=== PATIENT | female | born 1950 | race Caucasian/White ===

== ENCOUNTER 2018-04-17 06:38 | Inpatient (IN) ==
--- NOTE | 2018-04-16 22:23 | Discharge Summary ---
Orders not resulted at time of discharge: Pending orders 04/17/18 00:01 XR shoulder complete RT [XR] Routine H/H [Hemoglobin and Hematocrit] [HEME] Routine Date of Encounter: 04/18/18 Time of Encounter: 11:47 - Discharge Diagnosis (1) Status post reverse total arthroplasty of right shoulder Priority: Primary Status: Acute Comments: Opsite dressing, leave intact until first post-operative visit. Zipline in place, plan to remove at post-operative day #14-16. If dressing becomes >50% saturated, contact office, remove dressing and place appropriate dressing in its place. Do not allow for dressing to get wet. Shoulder Precautions x 6 weeks. Apply cold therapy wrap 3-6x/day for 20 minutes at a time. Encourage ambulation throughout the day. Use Incentive spirometer 10x/hour. Elevate affected extremity above heart as tolerated. NWB to affected upper extremity x 6 weeks. Will remove brace at first post-operative appointment. OK to remove during PT/OT and Home exercises. Remove ABD pillow at Postoperative day #1 (2) Rotator cuff arthropathy of right shoulder Priority: Primary Status: Acute (3) Factor V Leiden Priority: Secondary Status: Chronic (4) HTN (hypertension) Priority: Secondary Status: Chronic Qualifiers: Hypertension type: essential hypertension Qualified Code(s): I10 - Essential (primary) hypertension (5) History of pulmonary embolism Priority: Secondary Status: Chronic (6) Gout Priority: Secondary Status: Chronic Qualifiers: Gout site: unspecified site Gout etiology: unspecified cause Chronicity: chronic Presence of tophus: without tophus Qualified Code(s): M1A.9XX0 - Chronic gout, unspecified, without tophus (tophi) (7) Obesity Priority: Secondary Status: Chronic Qualifiers: Obesity type: due to excess calories Obesity classification: adult class 3 (BMI >= 40) Serious obesity comorbidity presence: without serious comorbidity Body mass index: BMI 45.0-49.9 Qualified Code(s): E66.01 - Morbid (severe) obesity due to excess calories; Z68.42 - Body mass index (BMI) 45.0-49.9, adult (8) Chronic anticoagulation Priority: Secondary Status: Chronic - Hospital Course Hospital course: Ms. Crowell is a 67 year old female POD#1 - Right TSR-r 04/17/18 Patient seen at bedside, without complaints. A&O x 3 Pain control added: Lidoderm patch Afebrile, vital signs stable. Vital Signs Temp Pulse Resp BP Pulse Ox 04/18/18 08:22 98.8 F 78 14 106/68 93 04/18/18 03:56 98.8 F 88 17 102/68 93 04/17/18 23:24 98.8 F 105 17 110/73 96 04/17/18 18:29 98.4 F 102 17 132/81 95 04/17/18 16:08 97.8 F 95 15 123/75 94 04/17/18 13:00 98.1 F 92 15 110/71 96 Intake and Output 04/17/18 04/18/18 04/18/18 23:59 07:59 15:59 Intake Total 1600 / 1600 240 / 240 Output Total 200 / 200 Balance 1400 / 1400 240 / 240 Intake: IV Fluids 1100 / 1100 Lactated Ringers 1,000 ML @ 75 1000 / 1000 mls/hr IVC .[id number] [facility] Rx#: [id number] Ancef 2,000 MG In 0.9 % Sodium 100 / 100 Chloride 100 ML @ 200 mls/hr IVPB Q8HR [facility] Rx#:[id number] Oral 500 / 500 240 / 240 Output: Urine 200 / 200 Other: Meal Breakfast Percent of Meal Consumed 100% # Voids 1 1 Weight 116.6 kg Patient Weight 04/18/18 23:59 Weight 116.6 kg Labs reviewed. H/H - stable, asymptomatic PT/INR - 1.1 - Start Lovenox 120 dose once a day - follow up [facility] this week. Pain control: adequate Participating in PT. All questions and concerns addressed. Educated on use of incentive spirometer. Encouraged ambulation and proper hydration. Patient educated on post-operative restrictions and post-operative care. Assessment and plan: Continue with postoperative care Discharge plan: Home with OP, discharge today. Coumadin Clinic F/up this week. PT/INR repeat on - Time Spent with Patient Total time spent providing and/or coordinating discharge services: - Discharge Medications Home Medications: Allopurinol [Zyloprim] 300 mg PO DAILY 03/23/16 [History] Biotin 1,000 mcg PO DAILY 03/23/16 [History] Bupropion HCl [Wellbutrin Xl] 300 mg PO DAILY 03/23/16 [History] Cinnamon Bark [Cinnamon] 1,000 mg PO DAILY 03/23/16 [History] Citalopram Hydrobromide [Citalopram HBr] 10 mg PO DAILY 03/23/16 [History] Loratadine [Allergy Relief] 10 mg PO DAILY 03/23/16 [History] [place]-3/Dha/Epa/Fish Oil [Fish Oil 1,000 mg Softgel] 1 cap PO DAILY 03/23/16 [History] Triamterene/Hydrochlorothiazid [Triamterene-Hctz 75-50 mg Tab] 1 each PO DAILY 03/23/16 [History] Warfarin [Coumadin] 10 mg PO SUTUWETHSA 03/23/16 [History] ALPRAZolam [Xanax 0.25 MG Tablet] 0.25 mg PO DAILY PRN 04/17/18 [History] Calcium Carbonate/Vitamin D3 [Calcium 500 + Vit D Caplet] 1 tab PO DAILY 04/17/18 [History] Cyclobenzaprine HCl 5 mg PO Q8H PRN 04/17/18 [History] Enoxaparin [Lovenox] 30 mg SQ Q12HR 5 Days #10 syringe 04/17/18 [Rx] Montelukast [Singulair] 10 mg PO HS 04/17/18 [History] Omeprazole [PriLOSEC] 20 mg PO DAILY 04/17/18 [History] Potassium Chloride 20 meq PO DAILY 04/17/18 [History] Turmeric Root Extract [Turmeric] 500 mg PO DAILY 04/17/18 [History] Warfarin Sodium 7.5 mg PO MOFR 04/17/18 [History] Docusate [Colace] 100 mg PO BID capsule 04/18/18 [Rx] Lidocaine Patch [Lidoderm 5% patch] 1 each TP DAILY adh..patch 04/18/18 [Rx] Allergies/Adverse Reactions: Allergy/AdvReac Type Severity Reaction Status Date / Time gabapentin AdvReac Dizziness Verified 04/17/18 11:45 [id number]-Aqd-Mmz Reductase AdvReac Muscle Pain Verified 04/17/18 11:45 Inhibitor [Statins] Date of admission: 04/17/18 Anticipated date of discharge: 04/18/18 - Patient Status Disposition: Home, Self-Care Condition: Good Functional capacity at discharge: independent ambulation Overall status at discharge: patient is progressing back to baseline - Discharge Instructions Follow Up With: Tasha Presley PAC [Physician Water Safety Teacher] - 04/27/18 9:30 am Saran Lanier MD [Partnered Physician] - 05/17/18 4:15 pm Rajan,Myriam Diaz CNP [Primary Care Provider] - 05/15/18 10:15 am
--- NOTE | 2018-04-17 06:54 | Anesthesia Evaluation PreOp ---
Date of Encounter: 04/17/18 Time of Encounter: 06:51 - Past History Planned Operation: Right total shoulder Cardiac History: HTN, Hyperlipidemia, Other (Factor V leiden w/ Hx PE/DVT. Last 2008. Has held coumadin 5 days with lovenox bridge.) INDUSTRIAL MACHINERY MECHANIC History: Other (depression, Hx [place] Palsy) Other Medical History: GERD (dysphagia), Other (BMI 44) Anesthesia History: Past Anesthesia (Partial Hyster, [place], R-knee scope, [place] filter, Colonoscopy) : No Alcohol Use: none Drug use: none Medications and Allergies ALPRAZolam [Xanax 0.25 MG Tablet] 0.25 mg PO DAILY PRN 03/23/16 [History] Allopurinol [Zyloprim] 300 mg PO DAILY 03/23/16 [History] Biotin 1,000 mcg PO DAILY 03/23/16 [History] Bupropion HCl [Wellbutrin Xl] 300 mg PO DAILY 03/23/16 [History] Calcium Carbonate/Vitamin D3 [Calcium 500-Vit D3 200 Tablet] 1 each PO DAILY 03/23/16 [History] Cholestyramine 4 gm PO BID 03/23/16 [History] Ciclopirox 1 appl TP 3XW 03/23/16 [History] Cinnamon Bark [Cinnamon] 1,000 mg PO DAILY 03/23/16 [History] Citalopram Hydrobromide [Citalopram HBr] 10 mg PO DAILY 03/23/16 [History] Loratadine [Allergy Relief] 10 mg PO DAILY 03/23/16 [History] [place]-3/Dha/Epa/Fish Oil [Fish Oil 1,000 mg Softgel] 1 each PO DAILY 03/23/16 [History] Potassium Chloride [K-Tab ER] 20 meq PO DAILY 03/23/16 [History] Pregabalin [Lyrica] 50 mg PO BID 03/23/16 [History] Salicylic Acid/Ceramide Cmb #1 [Salex 6% Cream Kit] 1 appl TP DAILY 03/23/16 [History] Triamterene/Hydrochlorothiazid [Triamterene-Hctz 75-50 mg Tab] 1 each PO DAILY 03/23/16 [History] Warfarin [Coumadin] 10 mg PO [id number] 03/23/16 [History] Warfarin [Coumadin] 12.5 mg PO SUTH 03/23/16 [History] Docusate [Colace] 100 mg PO BID 10 Days #20 capsule 04/16/18 [Rx] OxyCODONE Immed Rel [Roxicodone 5 MG] 5 mg PO Q6HR PRN 7 Days #28 tablet 04/16/18 [Rx] Allergy/AdvReac Type Severity Reaction Status Date / Time gabapentin AdvReac Dizziness Verified 03/28/18 09:19 Uutwdbn-Yyx-Kps Reductase AdvReac Muscle Pain Verified 03/28/18 09:19 Inhibitor [Statins] - Meds/Allergy Pre-op Review Medications Reviewed: Yes Allergies Reviewed: Yes Beta Blockers on Current Med List: No Anesthesia Results - Labs Laboratory Tests 03/28/18 03/28/18 03/28/18 09:52 09:52 09:52 WBC 6.0 Hgb 13.5 Hct 41.2 Plt Count 219 PT 21.0 H INR 1.9 APTT 38.9 H Sodium 138 Potassium 3.9 Chloride 102 Carbon Dioxide 30 H BUN 28 H Creatinine 0.94 Est GFR (Non-Af Amer) 60 - Imaging EKG: report reviewed Additional studies: Stress test 02/2016 no ischemia Echo 02/2016 Impressions: Normal LV chamber size, wall thickness, and systolic function. LVEF 60%. Mild left ventricular diastolic dysfunction. Normal right ventricular structure and function. No significant valvular dysfunction. Unable to estimate RVSP due to lack of TR jet. Anesthesia Exam Vital Signs/O2 Sat/Glucose, Most Recent Temp Pulse Resp BP Pulse Ox 98.2 F 86 18 127/70 96 04/17/18 07:02 04/17/18 07:02 04/17/18 07:02 04/17/18 07:02 04/17/18 07:02 Weight: 116 kg NPO (# of Hours): > 8 hr - HEENT Pupil (Motor): Pupils equal Mallampati: II Teeth: Normal Oral Opening: Greater than 3 - INDUSTRIAL MACHINERY MECHANIC LOC: Oriented INDUSTRIAL MACHINERY MECHANIC Motor: Normal RUE, Normal LUE, Normal RLE, Normal LLE, Normal Face INDUSTRIAL MACHINERY MECHANIC Sensory: Normal: RUE, LUE, RLE, LLE, Face - Cardiac Rhythm: Regular Murmur: None - Pulmonary Breath Sounds: bilateral Clear Respiratory Effort: Symmetrical Anesthesia Assess/Plan ASA Score: 3 Level of consciousness: Cooperative, Oriented, Tranquil Anesthetic Plan: General, Regional Nerve Block Regional Nerve Block Plan: Supraclavicular, Supracervical Plexus, Intercostobracial Monitoring Plan: Standard Monitors Recovery Plan: PACU
[2018-04-17] MEDS ORDERED: *HR* Promethazine 25 MG/ML VIAL IVP PRN (06:57)
[2018-04-17] MEDS ORDERED: Ondansetron 4 MG/2 ML VIAL IVP ONE (06:57)
[2018-04-17] MEDS ORDERED: *HR* OxyCODONE Immed Rel 5 MG TABLET PO PRN ×2 (06:57→10:09)
[2018-04-17] MEDS ORDERED: *HR* HYDROmorphone (PF) 1 MG/ML SYRINGE IVP PRN (06:57)
[2018-04-17] MEDS ORDERED: Famotidine 20 MG/2 ML VIAL IVP ONE (06:57)
[2018-04-17] MEDS ORDERED: Acetaminophen IV 1,000 MG/100 ML INFUS..BTL IVPB ONE (06:57)
--- NOTE | 2018-04-17 06:58 | History & Physical Report ---
Date of Encounter: 04/17/18 Time of Encounter: 06:57 24 Hour HP Update - Instructions Instructions: If the History and Physical is less than 30 days old and was completed prior to A.M. admission and or procedure and has NOT been updated on calendar day of procedure please complete this update prior to performing procedure. - Update Patient reports changes in Medical Condition: No Changes in examination, assessment, or condition: No Changes in Medication: No Preop tests/diagnostics Reviewed: Yes Surgery Remains Indicated: Yes Consent for Planned Operative Procedure(s) Verified: Yes - Pre-Operative Checklist Preoperative Checklist Indicated: No Prophylactic Antibiotic Ordered: Yes Is VTE Prophylaxis Indicated?: Yes
[2018-04-17] MEDS ORDERED: Ethanol\\Acetic Acid\\Na Ace\\Ben 1,000 ML IRRIG.SOLN IR ONE (07:05)
[2018-04-17] MEDS ORDERED: CeFAZolin Syr 2,000MG/20 ML 2,000 MG/20 ML SYRINGE IVPB ONE (07:11)
[2018-04-17] MEDS ORDERED: Dexamethasone 4 MG/ML VIAL ONE (07:14)
[2018-04-17] MEDS ORDERED: *HR* FentaNYL (PF) 100 MCG/2 ML VIAL ONE (07:14)
[2018-04-17] MEDS ORDERED: *HR* Midazolam HCl 2 MG/2 ML VIAL ONE (07:14)
[2018-04-17] MEDS ORDERED: *HR* Succinylcholine 200 MG/10 ML VIAL IVP ONE (07:14)
[2018-04-17] MEDS ORDERED: Ondansetron 4 MG/2 ML VIAL ONE (07:14)
[2018-04-17] MEDS ORDERED: Lidocaine -MPF 2% 2 ML VIAL ONE (07:14)
[2018-04-17] MEDS ORDERED: *HR* Propofol 200 MG/20 ML VIAL IVP ONE (07:14)
[2018-04-17] MEDS ORDERED: Ringers Solution, Lactated 1,000 ML IVC SCH (07:15)
[2018-04-17] MEDS ORDERED: ROPIVACAINE HCL/PF 0.5% 30 ML VIAL ONE (07:18)
[2018-04-17] MEDS ORDERED: *HR* PHENYLEPHRINE 1,000 MCG/10 ML SYRINGE IVP ONE (08:23)
--- NOTE | 2018-04-17 08:32 | Anesthesia Procedures ---
<Rachell Castroee - Last Filed: 04/17/18 08:33> Date of Encounter: 04/17/18 Time of Encounter: 07:40 Procedures: Anesthesia - Nerve Block Procedure Date: 04/17/18 Time: 07:40 Allergies/Adv Reactions: see list -multiple Pre-op Diagnosis: right shoulder arthritis Surgical Procedure: right shoulder reverse Checklist: Correct Patient Identifier, Correct procedure, History checked Correct side: Right Blood Thinner: Yes (off 5 days ) Monitor Applied: EKG, BP, Pulse Oximetry Supplemental Oxygen via Nasal Cannula (L/min): 2 Sedation: Versed (mg): 2 Sedation: Fentanyl (mcg): 100 Indication: Post Op Analgesia Pre-op Neuro Deficits: No Block Type: Supraclavicular (icb/scp) Catheter placed: No Sterile Technique: Yes Ultrasound used: Yes Anatomy identified: Yes Visual spread of Local: Yes Neuro Stimulation: Yes Nerve Stimulator Range: 0.2 - 0.4 mA Blood on Needle Aspiration: No Smooth Injection of Local: Yes Pain with Injection of Local: No Prep: Chlorhexadine Needle: 21 x 100 mm Stimuplex Local: Ropivacaine (0.5% with 8mg decadron ), Other (bupivicaine 0.25% icb/scp) Volume (cc): 50 Number of Attempts: 1 Complications: None/effective block Vitals: Vital Signs - Last 8 Hours Temp Pulse Resp BP Pulse Ox 04/17/18 07:45 86 172/96 95 04/17/18 07:37 98.2 F 86 18 127/70 96 04/17/18 07:02 98.2 F 86 18 127/70 96 Intake and Output 04/16/18 04/17/18 04/17/18 23:59 07:59 15:59 Other: Weight 116.573 kg Patient Weight 04/17/18 23:59 Weight 116.573 kg Comments: patient vss, tolerated well patient unable to move extremity <Amando Gamez - Last Filed: 04/17/18 08:59> Date of Encounter: 04/17/18
--- NOTE | 2018-04-17 08:55 | Orthopedic Operative Note ---
Date of procedure: 04/17/18 Pre-op diagnosis: Right shoulder cuff tear arthropathy Post-op diagnosis: same Procedure: Procedure: Total Shoulder Replacment Reverse, right Estimated blood loss: 100 cc Hardware: Metal and polyethylene replacement: Arthrex 24, +2 , 25 mm screw glenoid baseplate, 4 locking 5.5 screw, 39+4 glenosphere, 10 apex humeral stem, poly insert 3 Exam Under anesthesia: Full motion no instability Procedural Notes: Irreparable rotator cuff tear and glenohumeral arthritis Operative procedure: The patient was brought to the operating room and placed on the operating room table. After general anesthesia was administered the operative shoulder was exa mined. Findings were noted. The patient was placed in the modified beachchair position. All pressure points were padded appropriately. And the head was stabilized in the neutral position. The operative extremity was prepped and draped in the sterile surgical fashion. The patient received IV antibiotics prior to skin incision. A standard deltopectoral approach was made to the operative shoulder. Incision was made to the skin and subcutaneous tissue,hemo stasis was obtained with Bovie cautery. Using careful blunt dissection the cephalic vein was identified and mobilized medially. The deltopectoral interval was developed and the clavipectoral fascia was incised. The subscap was released off the lesser tuberosity and tagged with #2 FiberWire suture subscap irreparable. The humerus was dislocated patient noted to have irreparable tear supraspinatus tendon, and the humeral cut was made along the anatomic neck. Patient noted to have grade 4 changes humeral head glenoid socket. Anterior and posterior Bankart retractors were placed to expose the glenoid. The glenoid guide was seated and the centering hole was made. It was reamed with the appropriate reamer. The 24, +2, 25 mm screw, baseplate was seated and secured with 4 locking 5.5 screw. The baseplate was irrigated and dried and the 39+4 Glenosphere was seated and secured with the Salazar taper. The Salazar taper was tested and found to be secure, glenosphere fixation was secondarily secured with the central screw. The humerus was redislocated and prepared with the diaphyseal reamers, followed by a broaching process up to the appropriate size 10 apex in the patient's anatomic version. The metaphyseal reamer was then utilized. Trial reduction found the shoulder to be relocatable. Trial components were removed and 10 apex stem was impacted in place in the patient's anatomic version. Trial reduction found the shoulder to be relocatable and stable with the appropriate 3. Trial component was removed and the real implant was seated and secured the shoulder was reduced. The shoulder had excellent motion and excellent stability and no evidence of dislocation. The deep tissue was irrigated with pulse irrigation. The PA close the shoulder. The deltopectoral interval was closed with a running #1 PDS suture, subcutaneous tissue was irrigated and closed with 0 PDS suture, the skin was closed with Dermabond. The patient was placed in a sterile dressing, abduction brace and extubated. The patient was then transferred to the recovery room in stable condition. Anesthesia: GETA Surgeon: Saran Lanier Was there an assistant pastry chef present: No Estimated blood loss (cc): 100 Condition: stable Disposition: PACU
--- NOTE | 2018-04-17 09:47 | Anesthesia Evaluation Post Op ---
Date of Encounter: 04/17/18 Time of Encounter: 09:47 - Vital Signs Vital Signs: Vital Signs/O2 Sat/Glucose, Most Recent Temp Pulse Resp BP Pulse Ox 98.1 F 86 18 130/68 97 04/17/18 09:33 04/17/18 09:33 04/17/18 09:33 04/17/18 09:33 04/17/18 09:33 - Lungs Lungs: Clear Ascult./Percussion - Airway Airway: Non-obstructed - Cardiovascular Regular Rate - Mental Status Mental Status: Alert & Oriented, Answers Appropriately - Pain Pain Scale: 0 - Nausea Vomiting Nausea Vomiting: Not Present - Hydration Hydration: Tolerates oral liquids - Discharge PostOp Status: Transfer Patient to floor
[2018-04-17 09:59] LABS: Hematocrit 37.3 % (35.3-44.9); Hemoglobin 12.4 g/dL (11.5-15.4)
[2018-04-17] MEDS ORDERED: Temazepam 15 MG CAPSULE PO PRN (10:09)
[2018-04-17] MEDS ORDERED: Sennosides 8.6 MG TABLET PO PRN (10:09)
[2018-04-17] MEDS ORDERED: MOM Conc 10 ML UD.LIQ PO PRN (10:09)
[2018-04-17] MEDS ORDERED: Ondansetron 4 MG/2 ML VIAL IVP PRN (10:09)
[2018-04-17] MEDS ORDERED: Naloxone 0.4 MG/ML INJ IVP PRN (10:09)
[2018-04-17] MEDS: Loratadine 10 MG TABLET PO SCH (10:58)
[2018-04-17] MEDS: BuPROPion XL (24 HR) 150 MG TABLET PO SCH (10:58)
[2018-04-17] MEDS: SALICYLIC ACID TP SCH (11:06)
[2018-04-17] MEDS: Ringers Solution, Lactated 1,000 ML IVC SCH ×2 (11:06→23:21)
[2018-04-17] MEDS: [UNRECOGNIZED DRUG - OTHER] TP SCH (11:06)
[2018-04-17] MEDS: (Biotin [Biotin] 1,000 MCG) PO SCH (11:06)
[2018-04-17] MEDS: (Cinnamon Bark [Cinnamon] 1,000 MG) PO SCH (11:06)
[2018-04-17] MEDS: TUMERIC CURCUMIN PO SCH (11:06)
[2018-04-17] MEDS: traMADol 50 MG TABLET PO PRN (15:56)
[2018-04-17] MEDS: *HR* Enoxaparin 30 MG/0.3 ML SYRINGE SQ SCH (16:56)
[2018-04-17] MEDS ORDERED: *HR* Enoxaparin 30 MG/0.3 ML SYRINGE SQ SCH (18:00)
[2018-04-17] MEDS ORDERED: *HR* Warfarin 7.5 MG TABLET PO SCH (18:00)
[2018-04-18] MEDS: *HR* OxyCODONE/APAP 5/325 TABLET PO PRN ×2 (03:39→09:57)
[2018-04-18] MEDS: *HR* Enoxaparin 30 MG/0.3 ML SYRINGE SQ SCH (05:33)
[2018-04-18 06:46] LABS: Hematocrit 37.4 % (35.3-44.9)
[2018-04-18 06:52] LABS: INR 1.1; Prothrombin Time 12.3 Seconds (9.4-12.1)
[2018-04-18 07:06] LABS: BUN/Creatinine Ratio 19 (6-26); Blood Urea Nitrogen 19 mg/dL (8-23); Calcium 9.3 mg/dL (8.6-10.3); Carbon Dioxide 27 mEq/L (23-29); Chloride 103 mEq/L (98-107); Glucose 114 mg/dL (70-105); Osmolality,Calculated 291 (280-300); Potassium 3.6 mEq/L (3.5-5.1); Sodium 139 mEq/L (136-145); eGFR For Non-African Americans 54 (> 60)
--- NOTE | 2018-04-18 08:13 | Orthopedics Progress Note ---
Date of Encounter: 04/18/18 Time of Encounter: 08:12 Subjective Interval history: Patient was seen this morning doing well without complaints. Afebrile vital signs stable. Operative extremity: Neurovascularly intact Dressing clean dry and intact Calves nontender Assessment and plan: Continue with postoperative care Hematocrit 37 Objective Vital signs: Vital Signs Temp Pulse Resp BP Pulse Ox 04/18/18 03:56 98.8 F 88 17 102/68 93 04/17/18 23:24 98.8 F 105 17 110/73 96 04/17/18 18:29 98.4 F 102 17 132/81 95 04/17/18 16:08 97.8 F 95 15 123/75 94 04/17/18 13:00 98.1 F 92 15 110/71 96 04/17/18 12:00 98.1 F 90 16 104/71 97 04/17/18 11:00 97.8 F 79 16 103/57 96 04/17/18 10:30 97.9 F 81 17 120/80 98 04/17/18 10:00 98.1 F 79 16 119/76 95 04/17/18 09:43 98.1 F 77 18 132/73 96 04/17/18 09:33 86 18 130/68 97 04/17/18 09:23 92 18 123/62 100 04/17/18 09:13 98.7 F 92 20 134/64 94 Intake and Output 04/17/18 04/18/18 04/18/18 23:59 07:59 15:59 Intake Total 1600 / 1600 Output Total 200 / 200 Balance 1400 / 1400 Intake: IV Fluids 1100 / 1100 Lactated Ringers 1,000 ML @ 75 1000 / 1000 mls/hr IVC .[id number] [facility] Rx#: [id number] Ancef 2,000 MG In 0.9 % Sodium 100 / 100 Chloride 100 ML @ 200 mls/hr IVPB Q8HR [facility] Rx#:[id number] Oral 500 / 500 Output: Urine 200 / 200 Other: # Voids 1 1 Weight 116.6 kg Patient Weight 04/18/18 23:59 Weight 116.6 kg - Labs CBC & BMP: 04/18/18 06:22 04/18/18 06:22 Labs: Abnormal lab results PT 12.3 Seconds (9.4-12.1) H 04/18/18 06:22 Est GFR (Non-Af Amer) 54 (> 60) L 04/18/18 06:22 Glucose 114 mg/dL (70-105) H 04/18/18 06:22 - VTE Documentation of Mechanical Device: Venous foot pump, device Consult Discharge Plan - Plan Referrals: Tasha Presley PAC [Physician Combination Man] - 04/27/18 9:30 am Saran Lanier MD [Partnered Physician] - 05/17/18 4:15 pm Rajan,Myriam Diaz CNP [Primary Care Provider] - 05/15/18 10:15 am
[2018-04-18] MEDS: BuPROPion XL (24 HR) 150 MG TABLET PO SCH (09:57)
[2018-04-18] MEDS: Loratadine 10 MG TABLET PO SCH (09:58)
[2018-04-18] MEDS: (Biotin [Biotin] 1,000 MCG) PO SCH (11:15)
[2018-04-18] MEDS: TUMERIC CURCUMIN PO SCH (11:15)
[2018-04-18] MEDS: SALICYLIC ACID TP SCH (11:15)
[2018-04-18] MEDS: [UNRECOGNIZED DRUG - OTHER] TP SCH (11:15)
[2018-04-18] MEDS: (Cinnamon Bark [Cinnamon] 1,000 MG) PO SCH (11:15)
[2018-04-18] MEDS: traMADol 50 MG TABLET PO PRN (11:46)
[2018-04-18 12:08] VITALS: BP 152/81
[2018-04-18] MEDS ORDERED: *HR* Warfarin 10 MG TABLET PO SCH (18:00)
[2018-04-20] MEDS ORDERED: *HR* Warfarin 10 MG TABLET PO SCH (08:09)
== END 2018-04-18 12:28 | disposition home or self-care (01) | DRG 483 ==
LOC: SAMDAY 06:38 → 3NENU 10:40
PROVIDERS: ADMIT Orthopaedic Surgery; ATTEND Orthopaedic Surgery